=== PATIENT | female | born 1990 | race Hispanic/Latino ===

== ENCOUNTER 2024-05-10 22:25 | Emergency (ER) | payer BC ==
[~2024-05-10] VITALS: Ht 157.5 cm; Wt 79.4 kg
[2024-05-10] MEDS: ONDANSETRON HCL INJ 2MG/ML 2ML 2 MG/ML VIAL IV STA (23:03)
[2024-05-10] MEDS: SODIUM CHLORIDE 0.9% 1000ML 1,000 ML IV STA (23:03)
[2024-05-10 23:06] LABS: BASOPHILS % 0.2 % (0.0-1.0); EOSINOPHILS # (AUTO) 0.3 (0.0-0.4); EOSINOPHILS % 2.6 % (0.0-6.0); HEMATOCRIT 36.4 % (34.2-44.1); HEMOGLOBIN 12.1 g/dL (12.0-16.0); LYMPHOCYTES # (AUTO) 3.8 (1.0-3.2); LYMPHOCYTES % 33.3 % (18.0-39.1); MEAN CORPUSCULAR HEMOGLOBIN 28.7 pg (28-32); MEAN CORPUSCULAR HGB CONC 33.2 g/dL (31-35); MEAN CORPUSCULAR VOLUME 86.3 fL (81-99); MONOCYTES # (AUTO) 0.7 (0.2-0.8); MONOCYTES % 6.4 % (4.4-11.3); NEUTROPHILS # (AUTO) 6.5 (2.1-6.9); NEUTROPHILS % 57.4 % (38.7-80.0); PLATELET COUNT 338 x10e3/uL (140-360); RED BLOOD COUNT 4.22 x10e6/uL (3.6-5.1); RED CELL DISTRIBUTION WIDTH 12.6 % (11.7-14.4); WHITE BLOOD COUNT 11.33 x10e3/uL (4.8-10.8)
[2024-05-10 23:12] LABS: PREGNANCY TEST, URINE NEGATIVE (NEGATIVE)
[2024-05-10] MEDS: KETOROLAC TROMETHAMINE 30 MG/ML VIAL IV STA (23:15)
[2024-05-10 23:20] LABS: BILIRUBIN,URINE NEGATIVE (NEGATIVE); CLARITY,URINE CLEAR (CLEAR); COLOR,URINE YELLOW (YELLOW); GLUCOSE, URINE NEGATIVE (NEGATIVE); KETONES,URINE NEGATIVE (NEGATIVE); LEUKOCYTE ESTERASE ,URINE TRACE (NEGATIVE); NITRITE,URINE NEGATIVE (NEGATIVE); PH,URINE 7.5 (5 - 7); PROTEIN,URINE DIPSTICK NEGATIVE (NEGATIVE); URINE UROBILINOGEN 0.2 mg/dL (0.2 - 1)
[2024-05-10 23:25] LABS: ALBUMIN 4.1 g/dL (3.5-5.0); ALBUMIN/GLOBULIN RATIO 1.1 (0.8-2.0); ANION GAP 12.8 mmol/L (8-16); BILIRUBIN,TOTAL 0.3 mg/dL (0.2-1.2); CALCIUM 9.2 mg/dL (8.4-10.2); CREATININE, SERUM 1.04 mg/dL (0.57-1.11); POTASSIUM 3.8 mmol/L (3.5-5.1); TOTAL PROTEIN 7.7 g/dL (6.5-8.1)
[2024-05-10 23:28] LABS: BACTERIA,URINE MANY /HPF; EPITHELIAL CELLS,URINE MODERATE /LPF
[2024-05-10] MEDS ORDERED: IOPAMIDOL 370 MG/ML 100 ML INFUS..BTL INJ ONE (23:59)
[2024-05-11 01:40] VITALS: PULSE 80; RESP 19; TEMP 98.2
[2024-05-11] MEDS ORDERED: CIPRO500 MG PO (02:07)
[2024-05-11 02:17] VITALS: BP 123/86; PULSE 69; RESP 16; TEMP 98.7; O2SAT 97
== END 2024-05-11 02:17 | disposition home or self-care (01) ==
LOC: ER 22:30
DX: R10.31 Right lower quadrant pain (principal); N39.0 Urinary tract infection, site not specified; R11.2 Nausea with vomiting, unspecified; J45.909 Unspecified asthma, uncomplicated; E03.9 Hypothyroidism, unspecified
CPT/HCPCS: 36415; 74177; 80053; 81001; 81025; 83690; 85025; 99284; J1885; J2405; J7030; Q9967

== ENCOUNTER 2024-05-21 17:23 | Emergency (ER) | payer BC ==
[~2024-05-21 17:23] MED LIST: CIPRO500 MG PO
== END 2024-05-21 17:28 | disposition short-term general hospital (02) ==
LOC: ER 17:28
DX: R11.0 Nausea (principal)

== ENCOUNTER 2025-01-19 00:31 | Emergency (ER) | payer BC ==
[~2025-01-19] VITALS: Ht 157.5 cm; Wt 77.1 kg
[2025-01-19 01:20] VITALS: PULSE 97; RESP 24; TEMP 98.7
[2025-01-19] MEDS: SODIUM CHLORIDE 0.9% 1000ML 1,000 ML IV ONE (01:30)
[2025-01-19] MEDS: KETOROLAC TROMETHAMINE 30 MG/ML VIAL IV STA (01:31)
[2025-01-19] MEDS: ONDANSETRON HCL INJ 2MG/ML 2ML 2 MG/ML VIAL IV STA (01:31)
[2025-01-19] MEDS ORDERED: IOPAMIDOL 370 MG/ML 100 ML INFUS..BTL INJ ONE (01:38)
[2025-01-19] MEDS ORDERED: ONDANSETRON ODT4 MG PO (02:48)
[2025-01-19] MEDS ORDERED: CIPROFLOXACIN500 MG PO (02:48)
[2025-01-19 03:00] VITALS: BP 134/64; PULSE 81; RESP 18; TEMP 97.9; O2SAT 99
== END 2025-01-19 03:00 | disposition home or self-care (01) ==
LOC: FSED 00:34
DX: R11.2 Nausea with vomiting, unspecified (principal); K52.9 Noninfective gastroenteritis and colitis, unspecified; R10.84 Generalized abdominal pain; N39.0 Urinary tract infection, site not specified
CPT/HCPCS: 74177; 80048; 80076; 81003; 81025; 85025; 99284; J1885; J2405; J7030; Q9967